=== PATIENT | male | born 1970 | race Caucasian/White ===

== ENCOUNTER 2016-12-20 23:45 | Emergency (ER) | payer BC ==
--- NOTE | ~2016-12-20 | CR21 ---
[facility]. [facility] A Service of [facility] RADIOLOGY TEXT RESULTS PATIENT: KEYANA ARMENTA LOCATION: SED : 72 UNIT #: [id number] AGE: [address]: Blas Costello MD SEX: M ORDER DR: [id number] [place] [id number] MR#: [id number] Acc #: [id number] NAME: KEYANA ARMENTA : 1970 SEX: M STUDY DATE/TIME: 12/21/2016 0:10 UNIT: SED ROOM: STUDY DESCRIPTION: CR Ankle Min 3 Views Rt Attending Physician: Blas Costello M.D. Ordering Physician: Blas Costello M.D. Primary Care Physician: Yoel Gabriel M.D. MEDICAL IMAGING REPORT This report is preliminary unless electronic signature is present. EXAM Right ankle 12/21/2016 INDICATION Pain, twisting injury after stepping on something yesterday. TECHNIQUE 3 views. COMPARISON None. FINDINGS No acute fracture. Ankle mortise intact. No soft tissue swelling. There is mild degenerative change of the ankle joint. IMPRESSION Mild degenerative change. Otherwise negative. Dictated by... Colt Coto M.D. THIS IS AN ELECTRONICALLY VERIFIED REPORT Colt Coto M.D. at 12/21/2016 10:01 PM TERENCE/albertina TD: 12/21/2016 06:38 JOB #: [id number] MEDICAL IMAGING REPORT Page 1 of 1
[~2016-12-20 23:45] MED LIST: ALBUTEROL17 GM; ALBUTEROL17 GM INH; ALLEGRA180 MG PO; ASPIR-TRIN325 MG PO; ASPIRIN; ASPIRIN81 MG; ATIVAN; BACTRIM DS TABL1 TA1; BAYER ASPIRIN325 M1 PO; CARAFATE1 G PO; CELEBREX PO; CIPRO PO; FLEXERIL PO; FLEXERIL10 M1 PO; FLEXERIL10 MG PO; HYDROCODONE-APA1 T45 PO; IBUPROFEN400 MG; ILOTYCIN1 GM OD; KEFLEX500 MG PO; LORTAB 10-5001 EACH; METRONIDAZOLE PO; MULTI-DAY VITAM1 TAB PO; NAPROSYN500 MG PO; NO MEDICATIONS; NORCO 5/325 TAB1 TAB PO; PAXIL PO; PAXIL40 MG PO; PHENERGAN DM PO; PHENERGAN25 M1 PO; PHENERGAN25 MG PO; PREDNISONE PO; PROTONIX; PROTONIX PO; SKELAXIN PO; TESSALON200 MG PO; TYLENOL #3 PO; ULTRAM PO; VOLTAREN50 MG PO; VOLTAREN75 MG PO; ZITHROMAX PO; [UNRECOGNIZED DRUG - REMARK]
[2017-05-25] MEDS ORDERED: PROTONIX PO (11:37)
== END 2016-12-21 01:51 | disposition home or self-care (01) ==
LOC: SED 23:45
DX: S93.401A Sprain of unspecified ligament of right ankle, initial encounter (principal); F41.9 Anxiety disorder, unspecified; F17.200 Nicotine dependence, unspecified, uncomplicated; X50.1XXA Overexertion from prolonged static or awkward postures, initial encounter; Y92.009 Unspecified place in unspecified non-institutional (private) residence as the place of occurrence of the external cause
CPT/HCPCS: 29540; 73610; 99283

== ENCOUNTER 2017-02-12 15:49 | Observation (INO) | payer BC ==
--- NOTE | ~2017-02-12 | CR63 ---
[facility] A Service of [facility] RADIOLOGY TEXT RESULTS PATIENT: KEYANA ARMENTA LOCATION: [facility] 54-01 : 72 UNIT #: [id number] AGE: [address]: Yordan Hammond MD SEX: M ORDER DR: [id number] [place] [id number] [facility]. [place], [place] [address] [id number] I MR#: [id number] Acc #: [id number] NAME: KEYANA ARMENTA : 1970 SEX: M STUDY DATE/TIME: 02/12/2017 17:08 UNIT: [facility] ROOM: [facility] STUDY DESCRIPTION: CR Chest 2 View Attending Physician: Yordan Hammond M.D. Ordering Physician: Yordan Hammond M.D. Primary Care Physician: Yoel Gabriel M.D. MEDICAL IMAGING REPORT This report is preliminary unless electronic signature is present EXAM Frontal and lateral views of the chest, 02/12/2017 INDICATION 46-year-old male with chest pain, shortness of air, pneumonia, dizziness, cough, right upper quadrant pain, symptoms for a day. Possible pneumonia. TECHNIQUE 2 views of the chest compared with 05/23/2015 FINDINGS Cardiac silhouette within normal limits. Aorta is elongated and unchanged. There are advanced emphysematous changes in both lungs with bleb and bulla formation in the upper lobes, left greater than right. Underlying fibrosis and scarring bilaterally appears similar to the prior study. No pneumothorax. No distinct effusion. IMPRESSION Advanced emphysematous changes and chronic scarring and fibrosis. Old healed granulomatous disease but no definite superimposed active disease. Dictated by... Colt Coto M.D. THIS IS AN ELECTRONICALLY VERIFIED REPORT Colt Coto M.D. at 02/13/2017 10:10 AM Angel TD: 02/12/2017 22:11 JOB #: [id number] [facility] A Service of [facility] RADIOLOGY TEXT RESULTS PATIENT: KEYANA ARMENTA LOCATION: [facility] 547-01 : 72 UNIT #: [id number] AGE: [address]: Yordan Hammond MD SEX: M ORDER DR: MEDICAL IMAGING REPORT Page 1 of 1 COPY
--- NOTE | ~2017-02-12 | CT55 ---
[facility] A Service of [facility] RADIOLOGY TEXT RESULTS PATIENT: KEYANA ARMENTA LOCATION: [facility] 547-01 : 72 UNIT #: [id number] AGE: [address]: Yordan Hammond MD SEX: M ORDER DR: [id number] [facility] [address] [place], [place] [address] [id number] I MR#: [id number] Acc #: [id number] NAME: KEYANA ARMENTA : 1970 SEX: M STUDY DATE/TIME: 02/13/2017 UNIT: [facility] ROOM: [facility] STUDY DESCRIPTION: CT Chest W Con Attending Physician: Yordan Hammond M.D. Ordering Physician: Abilio Barrera M.D. Primary Care Physician: Yoel Gabriel M.D. MEDICAL IMAGING REPORT This report is preliminary unless electronic signature is present EXAM CT chest with contrast 02/13/2017 at 1155 hours HISTORY 46-year-old man with complaint of chest pain for 2 days with associated coughing and shortness of air. COMPARISON CT abdomen and pelvis 03/10/2014. Chest x-rays 02/13/2017 and 02/12/2017. TECHNIQUE Dynamic helical CT images were obtained from the thoracic inlet through the adrenal glands. Sagittal and coronal reconstructions were performed. Contrast was Isovue-370 70 mL IV. Total exam DLP 670 mGy/cm. This CT exam was performed with one or more of the following radiation dose reduction techniques: automatic exposure control, adjustment of mA and/or kV according to patient size, and iterative reconstruction. FINDINGS Images through the thoracic inlet demonstrate no thyroid lesion or adenopathy. Images through the chest demonstrate normal caliber aorta. Pulmonary arteries, cardiac chambers and pericardium are normal. There is benign calcified subcarinal adenopathy with no noncalcified adenopathy seen. There is no pericardial or pleural fluid. The esophagus is normal. Lung window images demonstrate bullous changes at the apices and paraseptal bullous emphysema in both upper lungs, medially greater than laterally. There is mild centrilobular emphysema. There is no bullous change at the bases. There is subpleural linear density at both lung STS. [facility] A Service of [facility] RADIOLOGY TEXT RESULTS PATIENT: KEYANA ARMENTA LOCATION: [facility] 547-01 : 72 UNIT #: [id number] AGE: [address]: Yordan Hammond MD SEX: M ORDER DR: dustin, unchanged from 03/10/2014, consistent with fibrotic change. There is no evidence of pneumonia, edema or bronchiectasis. IMPRESSION 1. No acute findings in the chest. There are bullous emphysematous changes at the apices with paraseptal bullous changes in the ivvfhh-kraiimm-uqvq-lateral upper lungs. No definite bullous changes in the lower lobes. 2. There is no evidence of pneumonia, edema or effusion. 3. Limited views through the upper abdomen are normal. Dictated by... Marisela Rangel M.D. THIS IS AN ELECTRONICALLY VERIFIED REPORT Marisela Rangel M.D. at 02/14/2017 9:16 AM Cris TD: 02/13/2017 18:19 JOB #: [id number] MEDICAL IMAGING REPORT Page 1 of 1 COPY
--- NOTE | ~2017-02-12 | ST ---
Unit #: [id number] #: [id number] Patient: KEYANA ARMENTA [id number] [facility]. [place] [id number] [facility]. [place], [place] [address] [id number] I MR#: [id number] NAME: KEYANA ARMENTA : 1970 SEX: M STUDY DATE/TIME: 02/13/2017 UNIT: C5B ROOM: 547 STUDY DESCRIPTION: Attending Physician: Yordan Hammond M.D. Primary Care Physician: Yoel Gabriel M.D. CARDIOLOGY REPORT EXAM Lexiscan Cardiolite stress test. FINDINGS Baseline EKG: Normal sinus rhythm with ventricular rate 61 beats per minute, left atrial abnormality, poor R-wave progression, early repolarization noted. PROCEDURE Lexiscan is a 4-minute test with Lexiscan being injected within the first minute followed by Cardiolite. EKG during the test was equivocal to baseline. No acute ischemic changes. Patient had no complaints of chest pain, palpitations, or dizziness. Had increased shortness of breath and fatigueness which resolved in recovery phase. Next, maximum heart rate response was 117 beats per minute with a maximum blood pressure response of 133/96 mmHg. Next, Cardiolite was injected after Lexiscan within the first minute of the test. Radionuclide tests pending. Please correlate with nuclear images. Dictated by... Michelle Amor A.P.R.N. for Maximus Walden/jose TD: 02/13/2017 10:40 JOB #: [id number] CARDIOLOGY REPORT Page 1 of 1 X Michelle Amor APRN CARDIOLOGY REPORT
--- NOTE | ~2017-02-12 | US67 ---
[facility] A Service of [facility] RADIOLOGY TEXT RESULTS PATIENT: KEYANA ARMENTA LOCATION: [facility] 54-01 : 72 UNIT #: [id number] AGE: [address]: Yordan Hammond MD SEX: M ORDER DR: [id number] [facility] [address]. [place], [place] [address] [id number] I MR#: [id number] Acc #: [id number] NAME: KEYANA ARMENTA : 1970 SEX: M STUDY DATE/TIME: 02/13/2017 8:53 UNIT: [facility] ROOM: [facility] STUDY DESCRIPTION: US Gallbladder Attending Physician: Yordan Hammond M.D. Ordering Physician: Yordan Hammond M.D. Primary Care Physician: Yoel Gabriel M.D. MEDICAL IMAGING REPORT This report is preliminary unless electronic signature is present EXAM Gallbladder ultrasound, 02/13 INDICATION Generalized upper abdominal pain for the last 2 days. FINDINGS Sonographic evaluation is performed of the right upper quadrant in multiple planes. The visualized pancreas is normal. The right kidney is morphologically normal and nonobstructed. Liver parenchyma is homogeneous and normal. There is no focal liver mass. Gallbladder is normal. No stones are seen, and there is no gallbladder wall thickening. Common duct is normal at 3.0 mm internal diameter. No free fluid is seen. IMPRESSION Normal right upper quadrant ultrasound. Dictated by... Jose Alberto Vargas Jr., M.D. THIS IS AN ELECTRONICALLY VERIFIED REPORT Jose Alberto Vargas Jr., M.D. at 02/13/2017 4:25 PM FERNIE/nury TD: 02/13/2017 10:53 JOB #: [id number] MEDICAL IMAGING REPORT Page 1 of 1 COPY
--- NOTE | ~2017-02-12 | A ---
[facility] Nutrition Therapy DATE: 02/13/17 Patient: KEYANA ARMENTA Physician: DAWOOD Address: [address] [place] [address] Room/Bed: [address] [place] [address], Zip: [place] [address] Admit Date: 02/12/17 Date of : 74 Height: 5 8 Weight: 118 53.8 NUTRITIONAL ASSESSMENT: REASON: LOW BMI PT IS 46 Y.O. MALE ADMITTED FOR CHEST PAIN PMH: EMPHYSEMA, SMOKER (CURRENT), GERD Anthropometrics: 5'8", WT: 118# (54 KG), BMI: 17.9, 77%IBW Labs: WNL Meds: PROTONIX, NACL, IV LEVAQUIN, PHENERGAN I/O & Bowel function: 1047/925 Skin Integrity: NO KNOWN SKIN ISSUES Estimated Nutrition Needs: INCREASED NUTRIENT NEEDS 2' PT UNDERWEIGHT Assessment: CHART REVIEWED AND EVENTS NOTED. PT SEEN FOR UNDERWEIGHT STATUS. PT REPORTS DECREASED PO INTAKE AND APPETITE PAST FEW DAYS D/T "NOT FEELING WELL-NOTING ABD PAIN". PT ADDS HE NORMALLY ONLY EATS ~1-2 MEALS DAILY AT HOME-NOTES HE "FEELS FULL AFTER HALF OF HIS MEALS". PT NOTES UBW IS ~124-126# PAST SEVERAL YEARS, NOTING ~6-8# WEIGHT LOSS IN PAST 2 MONTHS/4-6% SEVERE WEIGHT LOSS NOTED. THIS RD ENCOURAGED ADEQUATE KCAL AND PROTEIN INTAKE, PT AGREED TO ENSURE SHAKES TID W/MEALS. PT ADDS THAT HE IS AWARE HE IS UNDERWEIGHT AND HAS BEEN TRYING TO GAIN WEIGHT. RD ENCOURAGED PT TO CONSUME 3 MEALS DAILY + SNACKS. PT AGREED. PT REPORTED NO DIET QUESTIONS AT THIS TIME. RD TO FOLLOW. Dx: UNDERWEIGHT R/T DECREASED APPETITE, PMH, "FEELS FULL QUICKLY" AEB LOW BMI OF 17.9, 77%IBW, 4-6% SEVERE WEIGHT LOSS NOTED IN PAST 2 MONTHS. Intervention: 1. HH DIET 2. ENSURE SHAKES TID Monitoring, Evaluation and Goals: 1. ORAL INTAKE; CONSUME >50% OF MEALS AND SUPPLEMENTS W/NO C/O N/V/D 2. WEIGHTS; PROMOTE GRADUAL WEIGHT GAIN; PREVENT FURTHER WEIGHT LOSS 3. GI; PROMOTE REGULAR GI FUNCTION MONITOR: -PO INTAKE/APPETITE -WEIGHTS [facility] Nutrition Therapy DATE: 02/13/17 Patient: KEYANA ARMENTA Physician: DAWOOD Address: [address] [place] [address] Room/Bed: [address] [place] [address], Zip: [place] [address] Admit Date: 02/12/17 Date of : 74 Height: 5 8 Weight: 118 53.8 -SUPPLEMENT INTAKE Recommendations: 1. PLEASE ORDER EBONY ENSURE SHAKES TID W/MEALS 2. IF PO INTAKE <50%, RECOMMEND TO CHANGE CURRENT DIET ORDER TO REGULAR TO ALLOW MORE FOOD CHOICES 3. ENCOURAGE ADEQUATE PO INTAKE RD WILL F/U PER PROTOCOL PT IS MODERATELY COMPROMISED Respectfully, ALEXANDRO ZACARIAS MS, RD, LD Food and Nutritional Services [facility] cc: client file
--- NOTE | ~2017-02-12 | US37 ---
[facility] A Service [facility] RADIOLOGY TEXT RESULTS PATIENT: KEYANA ARMENTA LOCATION: [place] [address] : 72 UNIT #: [id number] AGE: [address]: Yordan Hammond MD SEX: M ORDER DR: [id number] [place] [id number] [place], [place] [address] [id number] I MR#: [id number] Acc #: [id number] NAME: KEYANA ARMENTA : 1970 SEX: M STUDY DATE/TIME: 02/13/2017 19:40 UNIT: [facility] ROOM: [facility] STUDY DESCRIPTION: US Carotid W/Doppler Bilateral Attending Physician: Yordan Hammond M.D. Ordering Physician: Yordan Hammond M.D. Primary Care Physician: Yoel Gabriel M.D. MEDICAL IMAGING REPORT This report is preliminary unless electronic signature is present EXAM Carotid duplex Doppler INDICATIONS Dizziness. Myocardial infarction. Numbness in the bilateral lower extremities. TECHNIQUE Hernandez-scale, color Doppler, and spectral Doppler ultrasound of the carotid arteries was performed. Evaluation for significant stenosis is based upon the NASCET criteria. COMPARISON None available. FINDINGS There is mild atherosclerotic plaque at the right carotid bifurcation. There is no evidence of a significant carotid arterial stenosis. The peak systolic velocity of the right common carotid artery is 82 cm/sec. Peak systolic velocity of the right internal carotid artery 58 cm/sec. Peak systolic velocity of the left common carotid artery is 78 cm/sec. The peak systolic velocity of the left internal carotid artery is 62 cm/sec. ICA/CCA ratios are within normal limits. Vertebral arteries are patent with antegrade flow. IMPRESSION Mild atherosclerotic disease, however no evidence of a significant carotid arterial stenosis. [facility] A Service [facility] RADIOLOGY TEXT RESULTS PATIENT: KEYANA ARMENTA LOCATION: [facility] 547- : 74 UNIT #: [id number] AGE: [address]: Yordan Hammond MD SEX: M ORDER DR: Dictated by... Ahsan Blas M.D. THIS IS AN ELECTRONICALLY VERIFIED REPORT Ahsan Blas M.D. at 02/14/2017 2:21 AM GERSON/brittany TD: 02/14/2017 00:31 JOB #: [id number] MEDICAL IMAGING REPORT Page 1 of 1 COPY
--- NOTE | ~2017-02-12 | DS ---
Unit #: [id number] #: [id number] Patient: KEYANA ARMENTA [id number] [facility]. [address] [address] [id number] I MR#: [id number] NAME: KEYANA ARMENTA ROOM: 54 Age: 46 Sex: M Admission Date: 02/12/2017 : 1970 Discharge Date: 02/14/2017 Attending Physician: Yordan Hammond M.D. Primary Care Physician: Yoel Gabriel M.D. DISCHARGE SUMMARY DISCHARGE DIAGNOSES 1. Atypical chest pain, status post Cardiology evaluation, status post negative workup unremarkable 2D echocardiogram, negative stress test, and negative cardiac enzymes. 2. Dizziness which has resolved, status post negative CT of the head, status post negative carotid Doppler. This was most likely secondary to dehydration. 3. Abdominal pain with some questionable weight loss, status post evaluation per Gastroenterology. Stable from Gastroenterology standpoint to be discharged with outpatient followup. 4. History of peripheral vascular disease. Continue home medications. 5. Chronic obstructive pulmonary disease, stable at baseline. Continue home medications. DISCHARGE MEDICATIONS Same as home medications: Ellipta inhaler q.a.m., cilostazol 50 mg p.o. b.i.d., Limbrel 500 mg capsule b.i.d., and aspirin 81 mg daily. FOLLOWUP With primary care physician in two to three days and outpatient followup with Cardiology and GI p.r.n. Dictated by... Yordan Hammond M.D. OC/christiano TD: 02/14/2017 17:39 JOB #: [id number] DISCHARGE SUMMARY Page 1 of 1 X Yordan Hammond MD X DISCHARGE SUMMARY
--- NOTE | ~2017-02-12 | TH ---
Unit #: [id number] #: [id number] Patient: KEYANA ARMENTA [id number] [address] [address] [id number] I MR#: [id number] NAME: KEYANA ARMENTA : 1970 SEX: M STUDY DATE/TIME: 02/13/2017 UNIT: C5B ROOM: 547 STUDY DESCRIPTION: Attending Physician: Yordan Hammond M.D. Primary Care Physician: Yoel Gabriel M.D. CARDIOLOGY REPORT EXAM Lexiscan Cardiolite stress test, nuclear portion. PROCEDURE Using technetium 99m labeled Cardiolite, rest and stress SPECT images were obtained. Multiple SPECT images were obtained in various views including horizontal and vertical long axis and short axis views of the left ventricle. Images were obtained by gated SPECT method. The patient was administered 11.99 mCi of Cardiolite at rest. The patient was administered 31.1 mCi of Cardiolite after Lexiscan infusion was completed. On the stress images, there is normal perfusion noted. The rest images showed normal perfusion. Comparing rest and stress images, there is no stress-induced ischemia noted. The left ventricular ejection fraction is calculated to be 60%. There is no focal wall motion abnormality seen. CONCLUSION 1. No obvious stress-induced ischemia noted. 2. The left ventricular ejection fraction is calculated to be 60%. 3. There is no focal wall motion abnormality seen. 4. Normal Lexiscan Cardiolite stress test. 5. Technically extremely limited study due to significant gut uptake. Clinical correlation is requested. Dictated by... Maximus Walden TD: 02/13/2017 15:51 JOB #: [id number] Unit #: [id number] #: [id number] Patient: EKYANA ARMNETA CARDIOLOGY REPORT Page 1 of 1 X Reta Ralph MD <ELECTRONICALLY SIGNED> 04/14/17 [id number] CARDIOLOGY REPORT
--- NOTE | ~2017-02-12 | CT71 ---
[facility] A Service of [facility] RADIOLOGY TEXT RESULTS PATIENT: KEYANA ARMENTA LOCATION: [facility] 547- : 72 UNIT #: [id number] AGE: [address]: Yordan Hammond MD SEX: M ORDER DR: [id number] [facility] [address] [place], [place] [address] [id number] I MR#: [id number] Acc #: [id number] NAME: KEYANA ARMENTA : 1970 SEX: M STUDY DATE/TIME: 02/13/2017 22:19 UNIT: [facility] ROOM: [facility] STUDY DESCRIPTION: CT Head Wo Contrast Attending Physician: Yordan Hammond M.D. Ordering Physician: Yordan Hammond M.D. Primary Care Physician: Yoel Gabriel M.D. MEDICAL IMAGING REPORT This report is preliminary unless electronic signature is present EXAM CT head, 02/13/2017. HISTORY Dizziness for [address] of the head performed skull base through vertex without intravenous contrast. This CT exam was performed with one or more of the following radiation dose reduction techniques: automatic exposure control, adjustment of mA and/or kV according to patient size, and iterative reconstruction. COMPARISON 01/11/13. FINDINGS Brainstem is unremarkable. Cerebellum and cerebral hemispheres show normal bishop matter-white matter differentiation. No hemorrhage. No evidence of acute cortical ischemia. The midline structures are nondisplaced. The basal ganglia are intact. The ventricles, cisterns and sulci normal in size and contour. No intra or extraaxial mass effect or abnormal intracranial fluid collection. The visualized intraorbital soft tissues are remarkable. The visualized paranasal sinuses and mastoid air cells are clear. No fracture. IMPRESSION 1. Normal CT of head. If the patient has ongoing neurologic symptoms, consider follow-up imaging, preferably with MRI if patient is candidate. [facility] A Service of [facility] RADIOLOGY TEXT RESULTS PATIENT: KEYANA ARMENTA LOCATION: [facility] 547 : 72 UNIT #: [id number] AGE: [address]: Yordan Hammond MD SEX: M ORDER DR: Dictated by... Blas Tidwell M.D. THIS IS AN ELECTRONICALLY VERIFIED REPORT Blas Tidwell M.D. at 02/14/2017 10:26 PM Demond TD: 02/14/2017 02:29 JOB #: [id number] MEDICAL IMAGING REPORT Page 1 of 1 COPY
--- NOTE | ~2017-02-12 | HP ---
Unit #: [id number] #: [id number] Patient: KEYANA JOLLY [id number] [facility] [address] [facility]. [place], [place] [address] [id number] MR#: [id number] NAME: KEYANA JOLLY ROOM: 54 Age: 46 Sex: M Admission Date: 02/12/2017 : 1970 Attending Physician: Yordan Hammond M.D. Primary Care Physician: Yoel Gabriel M.D. HISTORY AND PHYSICAL One medication blank. ADMISSION DIAGNOSES 1. Atypical chest pain. 2. History of peripheral vascular disease. 3. Abdominal pain. 4. Chronic obstructive pulmonary disease. HISTORY OF PRESENT ILLNESS Mr. Jolly is a 46-year-old gentleman, a patient of Dr. Yoel Gabriel, who apparently had an episode while at work about three days ago when he started excruciating pain in the abdomen and proceeded with some being nauseous and having dizziness. Returned home early that day; however, at home he continued to feel ill with the having dizzy spells in all the positions, even lying down. Next day he made an appointment and saw Dr. Gabriel at the [facility] office and he was found hypotensive and sent to the [facility] with the direct admission. He also complains of having some chest discomfort and aching sensation in the left axillary area which was getting worse with the cough. He also complains of some weight loss, about 10 pounds, which was unintentional. Apparently he had a cardiac cath in 2005, secondary to abnormal stress test, which was negative at that time. Patient otherwise denies any headache, denies any vomiting, denies any diarrhea, complains that he stays short of air usually but admits smoking. REVIEW OF SYSTEMS A 12-point review of systems on this patient is basically negative except as above. No fever or chills. PAST MEDICAL HISTORY Past medical history is significant for: 1. History of peripheral vascular disease. 2. Emphysema. 3. GERD. PAST SURGICAL HISTORY 1. Knee surgery. 2. Also cardiac cath. HOME MEDICATIONS Apparently he was taking Pletal and aspirin at home, also Limbrel and Ellipta inhaler. Unit #: [id number] #: [id number] Patient: KEYANA JOLLY SOCIAL HISTORY He is a lifetime smoker, also drinks occasionally, mainly beer, last drink about two weeks ago and denies any IV drugs, admits occasional marijuana use. FAMILY HISTORY Unremarkable for chronic illnesses other than CVA on the father's side. PHYSICAL EXAMINATION GENERAL: On the physical exam he is a 46-year-old gentleman who looks much older than stated age. VITAL SIGNS: BP 114/79. Heart rate 72. Respirations 20. Temperature 98.7. HEENT: Head is atraumatic. Pupils equal, round and reactive to light and accommodation. Extraocular muscles intact. Oropharynx clear. NECK: Neck is supple. No mass. No JVD. No bruits. CHEST: Diminished bilaterally. CARDIOVASCULAR: S1, S2. No murmurs. ABDOMEN: Abdomen is soft, nontender, nondistended. Bowel sounds are diminished. EXTREMITIES: Lower extremities without any cyanosis, clubbing or edema. NEUROLOGIC: Patient grossly intact without any focal deficits. DIAGNOSTIC STUDIES IMAGING: Chest x-ray negative except for emphysema. Right upper quadrant ultrasound negative. A CT of the chest was ordered by Cardiology to look for a malignancy. The preliminary report shows just emphysema but again a full report is currently pending. LABORATORY: Total cholesterol 136, LDL 91 and HDL 35, white count is 7.6, hemoglobin and hematocrit 15 and 45. All the laboratory workup including the set of cardiac enzymes is unremarkable. ASSESSMENT AND PLAN 1. Atypical chest pain: Status post Cardiology evaluation. Status post negative stress test. 2. History of peripheral vascular disease on Pletal. 3. Abdominal pain: Continue PPI. Will ask GI evaluation. 4. Dizzy spells: Will get the CT of the head. Also will get the bilateral carotid ultrasound since patient does have a history of coronary artery disease. 5. Chronic obstructive pulmonary disease along with the continued tobacco use at the baseline: Counseled on the importance of quitting. Will put him on DuoNeb q.4 h. p.r.n. 6. GI and DVT prophylaxis: Will change Lovenox to 30 subcu daily and Protonix 40 daily. 7. Please note that if the workup is unremarkable most likely will discharge home tomorrow but I will get the GI opinion, also get the CT of the head and carotid ultrasound. Unit #: [id number] #: [id number] Patient: KEYANA JOLLY Dictated by Yordan Hammond M.D. OC/hitesh TD: 02/13/2017 18:37 JOB #: [id number] HISTORY AND PHYSICAL Page 1 of 1 X Yordan Hammond MD HISTORY AND PHYSICAL
--- NOTE | ~2017-02-12 | EKG ---
PATIENT: KEYANA ARMENTA UNIT #: [id number] Ventricular Rate: 63 BPM Atrial Rate: 63 BPM P-R Interval: 162 ms QRS Duration: 78 ms Q-T Interval: 398 ms QTC Calculation(Bezet): 407 ms P Weston: 70 degrees Calculated R Weston: 66 degrees Calculated T Weston: 78 degrees Diagnosis Line: Normal sinus rhythm with sinus arrhythmia Diagnosis Line: Normal ECG Diagnosis Line: When compared with ECG of 03-JAN-2013 23:58, Diagnosis Line: No significant change was found Diagnosis Line: Confirmed by HAY LUGO MD ([id number]) on Diagnosis Line: 02/15/2017 1:11:41 PM INTERPRETING MD: TENZIN
--- NOTE | ~2017-02-12 | CR63 ---
[facility] of [facility] RADIOLOGY TEXT RESULTS PATIENT: KEYANA ARMENTA LOCATION: [facility] [id number] : 72 UNIT #: [id number] AGE: [address]: Yordan Hammond MD SEX: M ORDER DR: [id number] [facility] [address] [place], [place] [address] [id number] I MR#: [id number] Acc #: [id number] NAME: KEYANA ARMENTA : 1970 SEX: M STUDY DATE/TIME: 02/13/2017 8:11 UNIT: [facility] ROOM: [facility] STUDY DESCRIPTION: CR Chest 2 View Attending Physician: Yordan Hammond M.D. Ordering Physician: Abilio Barrera M.D. Primary Care Physician: Yoel Gabriel M.D. MEDICAL IMAGING REPORT This report is preliminary unless electronic signature is present EXAM Chest 02/13/2017. [facility] HISTORY 46-year-old male chest pain, short of air, weakness, cough, symptoms x1 day. COMPARISON Chest 02/12/2017. FINDINGS Two-view chest demonstrates normal stable cardiac size and configuration. Mediastinal contours are preserved. Lungs are hyperinflated with bullous replacement of the upper lobes bilaterally. There is flattening of both hemidiaphragms with increase in retrosternal air. I see no lung mass and no infiltrates. IMPRESSION Advanced findings of bullous emphysema. No superimposed acute abnormality. Dictated by... Joseph Leon M.D. THIS IS AN ELECTRONICALLY VERIFIED REPORT Joseph Leon M.D. at 02/13/2017 1:23 PM JESSICA/santy TD: 02/13/2017 09:53 JOB #: [id number] MEDICAL IMAGING REPORT [facility] RADIOLOGY TEXT RESULTS PATIENT: KEYANA ARMENTA LOCATION: [facility] 547- : 74 UNIT #: [id number] AGE: [address]: Yordan Hammond MD SEX: M ORDER DR: Page 1 of 1 COPY
--- NOTE | ~2017-02-12 | CO ---
Unit #: [id number] #: [id number] Patient: KEYANA ARMENTA [id number] [address] [place], [place] [address] [id number] I MR#: [id number] NAME: KEYANA ARMENTA ROOM: 547 Age: 46 Sex: M Admission Date: 02/12/2017 : 1970 Attending Physician: Yordan Hammond M.D. Primary Care Physician: Yoel Gabriel M.D. CONSULTATION REPORT REASON FOR CONSULTATION Chest pain. HISTORY OF PRESENT ILLNESS This is a 46-year-old white male who is admitted with upper abdominal pain that started at 3 a.m. while he was at work. He ate dinner at 6 o'clock before work and had a meatloaf sandwich at 11 p.m. At 3 a.m. this abdominal pain began. He had associated dizziness and nausea. No vomiting or diarrhea. After off work, he lay on a pillow to help with is abdominal discomfort. This is a usual practice for him when he had his episodes of GERD. He did not have much relief after a couple hours and then went to his primary care physician. He was subsequently admitted. Upon further questioning, the patient states he has intermittent left anterior and left axillary "aching" pain that is worse with cough. He says he is always short of breath. He also reports a decrease in his appetite and has had mild weight loss of less than 10 pounds that was unintentional. This dizziness has been ongoing for a while and can occur in any position. He admits to having sinus problems. He has no syncope or near syncope. From a cardiac standpoint he denies a history of hypertension, hyperlipidemia or diabetes. He was seen in this facility in 2005 where he underwent cardiac catheterization because of abnormal stress test and was found to have angiographically normal coronaries with normal left ventricular systolic function. He is known to have emphysema but has continued nicotine abuse. He states he is reasonably active, where he only gets short of breath with activities. No chest pain. PAST MEDICAL HISTORY 1. Cardiac catheterization 03/12/2006 showed normal coronaries with ejection fraction of 50% to 55%. 2. Emphysema. 3. Active smoker. 4. Occasional marijuana use. 5. GERD. PAST SURGICAL HISTORY Right knee surgery. SOCIAL HISTORY The patient is . He started smoking at age 14 and continues to smoke 1 1/2 packs of cigarettes daily. Drinks alcohol on rare occasions. Admits to smoking occasional marijuana. FAMILY HISTORY Father had 2 strokes. Mother had heart problems. Unaware of his siblings' Unit #: [id number] #: [id number] Patient: KEYANA ARMENTA history. ALLERGIES No known drug allergies. HOME MEDICATIONS Not reconciled. REVIEW OF SYSTEMS CONSTITUTIONAL: Negative for fever or chills. Has less than "10%" unintentional weight loss recently. HEENT: No headache, hearing or visual changes or difficulty with swallowing. Positive for dizziness. CARDIOVASCULAR: Has chest discomfort described in HPI. Denies palpitations. No paroxysmal nocturnal dyspnea or orthopnea. Denies syncope or near syncope. RESPIRATORY: Has persistent dyspnea and occasional nonproductive cough. No hemoptysis. GASTROINTESTINAL: Positive for abdominal discomfort across his entire upper abdomen. Positive for nausea but no vomiting, diarrhea, hematochezia or hematemesis. EXTREMITIES: Negative for lower extremity edema. PHYSICAL EXAMINATION VITAL SIGNS: Blood pressure 99/62, heart rate 74, temperature 98.2, BMI 18. GENERAL: This is a 46-year-old, thin, frail-appearing white male who appears older than his stated age. He is in no acute distress. NEUROLOGIC: He is awake, alert and oriented. There is no focal weakness. NECK: Trachea is midline. No thyromegaly or lymphadenopathy. No jugular venous distention. CARDIOVASCULAR: S1, S2. Heart sounds are normal. No murmurs, no rubs, no clicks. Regular rate and rhythm. LUNGS: Clear without rales, rhonchi or wheezes. ABDOMEN: Soft with slight tenderness in the right upper quadrant. No hepatomegaly. Bowel sounds are present. EXTREMITIES: Without leg edema. Pedal pulses are palpable. DIAGNOSTIC STUDIES LABORATORY STUDIES: Glucose 98, BUN 14, creatinine 0.7, sodium 137, potassium 3.6. Troponin less than 0.03. White count 7.6, hemoglobin 15.3, hematocrit 45.4, platelet count 193. DIAGNOSTIC IMAGING: Chest x-ray pending. CARDIOVASCULAR STUDIES: Electrocardiogram shows normal sinus rhythm with no acute ischemic changes. IMPRESSION 1. Abdominal pain, questionable etiology. 2. Atypical chest pain, musculoskeletal in origin. 3. Dizziness, questionable etiology. 4. Normal coronaries per cardiac catheterization in 2005. 5. Emphysema. 6. Borderline hypotension. 7. Nicotine abuse. PLAN Unit #: [id number] #: [id number] Patient: KEYANA ARMENTA 1. Cardiology was consulted for evaluation of chest pain. The patient's chest pain is musculoskeletal in origin. Will continue to trend troponin to rule out myocardial infarction. If troponin is negative, will proceed with Lexiscan Cardiolite stress test in the a.m. 2. Await ultrasound of the gallbladder to rule out gallbladder disease. 3. Lipid profile, thyroid function test will be done. 4. Two-D echocardiogram to evaluate left ventricular systolic function. 5. Check orthostatics. 6. IV fluids because of borderline hypotension. 7. Start on aspirin and full dose Lovenox. 8. No beta-jazmine because of hypotension. Further recommendations to follow. Thank you for allowing us to assist with this patient's care. Dictated by... Maddy Grubbs/herberth TD: 02/13/2017 09:02 JOB #: [id number] CONSULTATION REPORT Page 1 of 1 X Zach Valentin APRN CONSULTATION REPORT
[2017-02-12 16:45] LABS: HEMATOCRIT 45.4 % (38.0-50.0); HEMOGLOBIN 15.3 gm/dL (13.0-16.0); MEAN CELL VOLUME 90.8 FL (83-96); MEAN CORPUSCULAR HEMOGLOBIN 30.6 PG (28-34); MEAN CORPUSCULAR HGB CONC 33.8 g/dL (30-36); MEAN PLATELET VOLUME 8.5 FL (6.5-11.5); RED CELL DISTRIBUTION WIDTH 13.9 % (11.0-15.5); WHITE BLOOD COUNT 7.6 X10e3 (4.0-10.5)
[2017-02-12] MEDS ORDERED: ASPIRIN81 MG PO (16:46)
[2017-02-12 17:11] LABS: ALBUMIN SERUM 4.5 g/dL (3.5-5.0); BILIRUBIN,TOTAL 0.6 mg/dL (0.2-2.0); CALCIUM SERUM 9.1 mg/dL (8.4-10.2); CREATININE SERUM 0.7 mg/dL (0.6-1.4); GLOM FILT RATE Estimated 114.8 mL/min (>60); POTASSIUM 3.6 mmol/L (3.5-5.1); PROTEIN TOTAL SERUM 7.1 g/dL (6.0-8.3)
[2017-02-12 17:48] LABS: %MB 2.2 % (0.0-4.0); MB 1.9 ng/ml
[2017-02-12] MEDS ORDERED: LIMBREL 500 MG500 MG PO (20:08)
[2017-02-12] MEDS ORDERED: ANORO ELLIPTA1 EACH INH (20:09)
[2017-02-12] MEDS ORDERED: CILOSTAZOL50 MG PO (20:09)
[2017-02-12 23:00] LABS: %MB 2.1 % (0.0-4.0); MB 1.6 ng/ml
[2017-02-13 04:44] LABS: %MB 2.3 % (0.0-4.0); MB 1.5 ng/ml
[2017-02-13 04:51] LABS: CHOLESTEROL 136 mg/dL (0-200); HDL CHOLESTEROL 35 mg/dL (29-75); LDL CHOLESTEROL 91 mg/dL (-130); LDL/HDL RATIO 3 RATIO (0-4); TRIGLYCERIDES 50 mg/dL (10-160)
[2017-05-25] MEDS ORDERED: PROTONIX PO (11:37)
== END 2017-02-14 18:36 | disposition home or self-care (01) | DRG 313 ==
LOC: C5B 15:49
PROVIDERS: Hospitalist; Nurse Practitioner
DX: R07.89 Other chest pain (principal); R42 Dizziness and giddiness; R10.9 Unspecified abdominal pain; J44.9 Chronic obstructive pulmonary disease, unspecified; K21.9 Gastro-esophageal reflux disease without esophagitis; F17.210 Nicotine dependence, cigarettes, uncomplicated; I36.1 Nonrheumatic tricuspid (valve) insufficiency; I65.23 Occlusion and stenosis of bilateral carotid arteries; J84.10 Pulmonary fibrosis, unspecified; J98.4 Other disorders of lung; I31.3 Pericardial effusion (noninflammatory); F12.90 Cannabis use, unspecified, uncomplicated; I73.9 Peripheral vascular disease, unspecified; Z79.899 Other long term (current) drug therapy; Z79.02 Long term (current) use of antithrombotics/antiplatelets; Z79.82 Long term (current) use of aspirin; Z82.3 Family history of stroke; Z82.49 Family history of ischemic heart disease and other diseases of the circulatory system
CPT/HCPCS: 70450; 71020; 71260; 76705; 78452; 80053; 80061; 82274; 82550; 82553; 84443; 84484; 85027; 93005; 93017; 93306; 93880; 94760; 96372; 96374; 96376; A9500; G0378; J1650; J1956; J2785; Q9967

== ENCOUNTER → 2017-05-25 | Day surgery (SDC) | payer BC ==
[~2017-05-25] MED LIST changes: +ANORO ELLIPTA1 EACH INH; +ASPIRIN81 MG PO; +CILOSTAZOL50 MG PO; +LIMBREL 500 MG500 MG PO
--- NOTE | ~2017-05-25 | OR ---
Unit #: [id number] #: [id number] Patient: KEYANA ARMENTA [id number] [address] [address] [id number] MR#: [id number] NAME: KEYANA ARMENTA ROOM: Date of Procedure: 05/25/2017 Admission Date: 05/25/2017 Surgeon: Ramin Holman M.D. : 1970 Attending Physician: Ramin Holman M.D. Primary Care Physician: Yoel Gabriel M.D. OPERATIVE REPORT PROCEDURE PERFORMED Esophagogastroduodenoscopy with biopsy. INDICATIONS FOR PROCEDURE The patient with persistent and severe GERD symptoms. Nausea and vomiting. Undergoing evaluation with upper endoscopy. MEDICATIONS Monitored anesthesia. POSTOPERATIVE FINDINGS 1. Small hiatal hernia. 2. Mild LA grade A esophagitis. 3. Mild gastritis, biopsies taken. 4. Normal duodenum. PLAN Continue PPI therapy. . DESCRIPTION OF PROCEDURE The patient was explained of the procedure risks and benefits along with risks and benefits of anesthesia. He was brought to the endoscopy room. Propofol anesthesia was given. Bite block was placed. Scope was passed down the mouth into esophagus, stomach, duodenum, and distal duodenum. Findings as described. Biopsies taken. Gently, I pulled the scope out of the patient's mouth. He tolerated it well. No major complications. Dictated by... Maximus Santiago/messi TD: 05/26/2017 07:29 JOB #: [id number] Unit #: [id number] #: [id number] Patient: KEYANA ARMENTA OPERATIVE REPORT Page 1 of 1 X Ramin Holman MD X PROCEDURE OPERATIVE NOTE
== END | disposition home or self-care (01) ==
LOC: COPS 07:45
DX: K21.0 Gastro-esophageal reflux disease with esophagitis (principal); K29.50 Unspecified chronic gastritis without bleeding; K31.89 Other diseases of stomach and duodenum; K44.9 Diaphragmatic hernia without obstruction or gangrene; J44.9 Chronic obstructive pulmonary disease, unspecified; I25.2 Old myocardial infarction; F17.210 Nicotine dependence, cigarettes, uncomplicated; Z79.82 Long term (current) use of aspirin; Z79.899 Other long term (current) drug therapy
CPT/HCPCS: 88305; 88312